=== PATIENT | male | born 1990 | race Caucasian/White ===

== ENCOUNTER 2021-06-07 23:00 | Emergency (ER) | payer SELFPAY ==
[~2021-06-07] VITALS: Ht 165.1 cm; Wt 68.0 kg
[2021-06-07] MEDS ORDERED: LIDOCAINE/EPI 2% 1:100,00 (XYLOCAINE) 20 ML VIAL INJ ONE (23:30)
[2021-06-07] MEDS ORDERED: LIDOCAINE/EPI 1%-1:200,000 (XYLOCAINE) 30 ML VIAL INJ ONE (23:30)
[2021-06-07] MEDS ORDERED: LIDOCAINE/EPI 1%-1:100,000 (XYLOCAINE) 20ML ONE (23:32)
[2021-06-07] MEDS ORDERED: LIDOCAINE/EPI 1%-1:100,000 (XYLOCAINE) 20ML INJ ONE (23:45)
--- NOTE | 2021-06-08 00:11 | Diagnostic Imaging Report ---
INDICATION: Knee pain COMPARISON: None available TECHNIQUE: 3 radiographs of the right knee dated 06/07/2021 FINDINGS: No acute fracture or dislocation. No destructive osseous process. Joint spaces are well-maintained. No significant osteophytosis. Soft tissue laceration is in the fat anterior to the patella superiorly. No suspicious radiopaque foreign body. No knee joint effusion. IMPRESSION: No acute osseous abnormality. Laceration anterior to the superior aspect of the patella without suspicious radiopaque foreign body. Dictated by: Dictated on workstation # [id number]
[2021-06-08] MEDS ORDERED: SULF1TAB38 PO (00:44)
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
[2021-06-08] MEDS ORDERED: TRIM/SULFAMETH 160/800 (SEPTRA DS) TAB PO ONE (00:45)
[2021-06-08 01:00] VITALS: BP 120/68
== END 2021-06-08 01:00 | disposition home or self-care (01) ==
LOC: EDUNIT# 23:00 → ER 23:03
DX: S81.011A Laceration without foreign body, right knee, initial encounter (principal); V18.0XXA Pedal cycle driver injured in noncollision transport accident in nontraffic accident, initial encounter; F17.210 Nicotine dependence, cigarettes, uncomplicated
CPT/HCPCS: 12042; 73562